=== PATIENT | female | born 1955 | race Caucasian/White ===

== ENCOUNTER 2017-01-31 07:34 | Observation (INO) | payer OTHER ==
[2017-01-31] MEDS ORDERED: ASPIRIN 81 MG CHEWABLE TAB PO ONE (07:35)
[2017-01-31] MEDS ORDERED: NS 500 ML IV ONE (07:35)
[2017-01-31] MEDS ORDERED: NITROGLYCERIN/DEXTROSE 250 ML IV ONE (07:35)
--- NOTE | 2017-01-31 07:42 | CPEKG ---
Heart Rate: 74 RR Interval: 811 P-R Interval: 160 QRSD Interval: 72 QT Interval: 364 QTC Interval: 404 P [place]: 20 QRS [place]: 67 T Wave [place]: 51 EKG Severity - NORMAL ECG - EKG Impression: SINUS RHYTHM Electronically Signed By: Misha Orr 01-Feb-2017 09:00:24
--- NOTE | 2017-01-31 07:45 | EDPHY ---
H & P Time Seen by Provider: 01/31/17 07:35 HPI/ROS: HPI Chest pain. 61-year-old female by private vehicle. She reports onset of substernal chest pain described as a squeezing aching sensation, mid sternum, 15-30 minutes prior to arrival to our emergency department on her way to work. She has a prior history of coronary artery disease. ROS: Constitutional: No fever, no chills. No weakness. Eyes: No discharge. No changes in vision. ENT: No sore throat. No nasal congestion or rhinorrhea. Respiratory: No cough. No shortness of breath. Cardiac: No chest pain, no palpitations. Gastrointestinal: No abdominal pain, no vomiting, no diarrhea. Genitourinary: No hematuria. No dysuria or increased frequency with urination. Musculoskeletal: No back pain. No neck pain. No myalgias or arthralgias. Skin: No rashes. Neurological: No headache. No focal weakness or altered sensation. Past medical history: Prior history of coronary artery disease. She has had stenting of her LAD in 2009 restenting in 2010. Swe[employer] Machine currently is Dr. Janice Samayoa. She has also been seen by Dr. Zack Manjarrez in the past. Per her records she had a coronary perfusion study in 2013 which showed patent stents. Her ejection fraction at that time was estimated to be 71%. Other past medical history includes hypertension, hyperlipidemia, right hip replacement, insomnia. Social history: Negative for tobacco. Here by herself. No alcohol. Physical Exam: General Appearance: Alert, mildly anxious. This patient is responding to questions appropriately and in full sentences. This patient appears well- hydrated and well-nourished. Eyes: Pupils equal and round no pallor or injection. No lid edema, erythema or injection. Respiratory: There are no retractions, lungs are clear to auscultation with good air movement bilaterally. No tachypnea. Cardiovascular: Regular rate and rhythm. No murmur. Gastrointestinal: Abdomen is soft and nontender, no masses, bowel sounds normal. No focal tenderness at McBurney's point. No Calzada sign. Neurological: Motor sensory function is grossly intact. Cranial nerves are normal. Gait is normal. Skin: Warm and dry, no rashes. Musculoskeletal: Neck is supple and nontender. Extremities are symmetrical. All joints range without pain or impingement. Psychiatric: No agitation. No depression. Database: EKG: EKG time is 7:41 a.m.; EKG shows a narrow complex normal sinus rhythm with a ventricular rate of 74. The VT, QRS, QT intervals are within normal limits. There are no ST-T wave changes indicative of ischemic or injury pattern. No evidence of right heart strain. Interpreted by me. Imaging: Chest x-ray AP portable; the cardiac mediastinal silhouette is unremarkable. No evidence of infiltrate or pneumothorax. No acute cardiopulmonary disease process noted. Interpreted by me. Procedures: Emergency department course: IV placed. She was placed on a equipment monitor phototypesetting. Vital signs reviewed. EKG and chest x-ray performed. She took 1 sublingual nitroglycerin without relief prior to arrival. She states that she often gets low blood pressure and lightheaded with nitroglycerin sublingual, more than 1 tablet. She will be started on a nitroglycerin drip at 40 micrograms/minutes initially. She was given a chewed aspirin. 7:45 a.m., patient re-evaluated. Rates her pain as a 4/10 currently. Vital signs remained stable. Nitroglycerin drip turned up to 60 micrograms/minute. 8:10 a.m., patient re-evaluated. Rates her pain as 1 to 2/10 currently. Nitroglycerin drip turned down to 40 micrograms/minute. Will be discontinued on transfer. 8:20 a.m., discussed case with on-call hospitalist. Patient accepted for admission to the hospitalist service by Dr. Booth. Patient transferred in stable condition. Patient to be admitted PCU observation on arrival to [facility]. Differential Diagnosis: The differential diagnosis on this patient includes but is not limited to acute coronary syndrome, myocardial infarction, myocarditis, pericarditis. Pulmonary embolism, aortic dissection unlikely. This represents a partial list of diagnoses considered. These considerations are based on history, physical exam , past history, reassessment and diagnostic testing. Smoking Status: Never smoked Constitutional: Initial Vital Signs Temperature (C) 36.4 C 01/31/17 07:34 Heart Rate 75 01/31/17 07:34 Respiratory Rate 24 H 01/31/17 07:34 Blood Pressure 104/67 01/31/17 07:34 O2 Sat (%) 93 01/31/17 07:34 O2 Delivery Mode Nasal Cannula O2 (L/minute) 2 Allergies/Adverse Reactions: hydromorphone [Hydromorphone] Allergy (Intermediate, Verified 01/31/17 07:38) Flushing hydromorphone HCl [From Dilaudid] Allergy (Intermediate, Verified 01/31/17 07:38 ) IV FLUSHING morphine Allergy (Intermediate, Verified 01/31/17 07:38) Itching Home Medications: Medication Instructions Recorded Aspirin EC [Aspirin EC 81 mg (*)] 81 mg PO DAILY 07/27/14 Beta-Carotene(A) W-C & E/Min 1 tab PO DAILY 07/27/14 [Ocuvite] Folic Acid [Folic Acid 1 MG (*)] 0.4 mg PO DAILY 07/27/14 Gabapentin [Neurontin] 600 mg PO HS 07/27/14 Herbals/Supplements -Info Only 1 ea PO DAILY 07/27/14 Nebivolol HCl [Bystolic] 2.5 mg PO DAILY 07/27/14 Rosuvastatin Calcium [Crestor] 10 mg PO HS 07/27/14 Vitamin B Complex [B Complex] 1 each PO DAILY 07/27/14 Amitriptyline HCl [Elavil] 25 mg PO HS 07/31/14 Acetaminophen [Tylenol 325mg (*)] 325 - 650 mg PO Q4 PRN #0 tab 08/07/14 Ferrous Sulfate [Slow Fe 140 MG 140 mg PO DAILY #30 tab.er 08/07/14 (*)] Clopidogrel Bisulfate [Plavix (*)] 75 mg PO HS 01/15/16 Pantoprazole Sodium [Protonix 40mg 40 mg PO DAILY 01/15/16 (*)] buPROPion XL [Wellbutrin 150mg XL] 150 mg PO DAILY 01/15/16 traZODone [traZODONE 50MG (*)] 50 mg PO HS PRN 01/15/16 Medical Decision Making - Diagnostics Imaging Results: Imaging Impressions Chest X-Ray 01/31/17 07:36 Impression: 1. No acute pulmonary disease. 2. Consider chest two views when the patient's medical condition permits. - Data Points Laboratory Results: Laboratory Results 01/31/17 07:49 01/31/17 07:49 01/31/17 01/31/17 01/31/17 07:49 07:49 07:49 WBC 5.78 10^3/uL 10^3/uL (3.80-9.50) RBC 4.19 10^6/uL 10^6/uL (4.18-5.33) Hgb 12.6 g/dL g/dL (12.6-16.3) Hct 38.0 % % (38.0-47.0) MCV 90.7 fL fL (81.5-99.8) MCH 30.1 pg pg (27.9-34.1) MCHC 33.2 g/dL g/dL (32.4-36.7) RDW 13.3 % % (11.5-15.2) Plt Count 217 10^3/uL 10^3/uL (150-400) MPV 9.0 fL fL (8.7-11.7) Neut % (Auto) 48.9 % % (39.3-74.2) Lymph % (Auto) 38.2 % % (15.0-45.0) Jerome % (Auto) 8.7 % % (4.5-13.0) Eos % (Auto) 3.1 % % (0.6-7.6) Baso % (Auto) 0.9 % % (0.3-1.7) Nucleat RBC Rel Count 0.0 % % (0.0-0.2) Absolute Neuts (auto) 2.83 10^3/uL 10^3/uL (1.70-6.50) Absolute Lymphs (auto) 2.21 10^3/uL 10^3/uL (1.00-3.00) Absolute Monos (auto) 0.50 10^3/uL 10^3/uL (0.30-0.80) Absolute Eos (auto) 0.18 10^3/uL 10^3/uL (0.03-0.40) Absolute Basos (auto) 0.05 10^3/uL 10^3/uL (0.02-0.10) Absolute Nucleated RBC 0.00 10^3/uL 10^3/uL (0-0.01) Immature Gran % 0.2 % % (0.0-1.1) Immature Gran # 0.01 10^3/uL 10^3/uL (0.00-0.10) PT 13.2 SEC SEC (12.0-15.0) INR 1.03 (0.83-1.16) APTT 29.8 SEC SEC (23.0-38.0) Sodium 140 mEq/L mEq/L (134-144) Potassium 3.9 mEq/L mEq/L (3.5-5.2) Chloride 104 mEq/L mEq/L (97-110) Carbon Dioxide 24 mEq/l mEq/l (22-31) Anion Gap 12 mEq/L mEq/L (8-16) BUN 19 mg/dL mg/dL (7-23) Creatinine 0.8 mg/dL mg/dL (0.6-1.0) Estimated GFR > 60 Glucose 94 mg/dL mg/dL (70-100) Calcium 8.9 mg/dL mg/dL (8.5-10.4) Creatine Kinase 67 IU/L IU/L (0-156) CK-MB (CK-2) Fraction 0.83 ng/mL ng/mL (0-4.55) Troponin I < 0.012 ng/mL ng/mL (0-0.034) Medications Given: Discontinued Medications Aspirin (Aspirin) 324 mg PO EDNOW ONE Stop: 01/31/17 07:36 Last Admin: 01/31/17 07:45 Dose: 324 mg Sodium Chloride (Ns) 500 mls @ 1,000 mls/hr IV ONCE ONE PRN Reason: Protocol Stop: 01/31/17 08:04 Last Admin: 01/31/17 07:45 Dose: 500 mls Nitroglycerin/Dextrose (Nitroglycerin 200 Mcg/Ml (Premix)) 250 mls @ 0 mls/hr IV CONT ONE; Titrate PRN Reason: Protocol Stop: 01/31/17 07:36 Last Admin: 01/31/17 07:50 Dose: 250 mls Departure - Departure Disposition: [facility] Inpatient Acute Clinical Impression: Chest pain, History of coronary artery disease
[2017-01-31 07:51] LABS: % IMMATURE GRANULYOCYTES 0.2 % (0.0-1.1); ABSOLUTE IMMATURE GRANULOCYTES 0.01 10^3/uL (0.00-0.10); ADD DIFF? NO; ADD MORPH? NO; ADD SCAN? NO; ATYPICAL LYMPHOCYTE FLAG 20 (0-99); FRAGMENT RBC FLAG 0 (0-99); HEMOGLOBIN 12.6 g/dL (12.6-16.3); LEFT SHIFT FLG 0 (0-99); LIPEMIA HEMOLYSIS FLAG 80 (0-99); MEAN CELL HEMOGLOBIN 30.1 pg (27.9-34.1); MEAN CELL HEMOGLOBIN CONCENTR. 33.2 g/dL (32.4-36.7); MEAN CELL VOLUME 90.7 fL (81.5-99.8); PLATELET CLUMPS FLAG 0 (0-99); PLATELET COUNT 217 10^3/uL (150-400); RED BLOOD CELL COUNT 4.19 10^6/uL (4.18-5.33); RED CELL DISTRIBUTION WIDTH 13.3 % (11.5-15.2)
[2017-01-31 08:07] LABS: ANION GAP 12 mEq/L (8-16); CALCIUM 8.9 mg/dL (8.5-10.4); CARBON DIOXIDE 24 mEq/l (22-31); CHLORIDE 104 mEq/L (97-110); CREATININE 0.8 mg/dL (0.6-1.0); GLOMERULAR FILTRATION RATE > 60; GLUCOSE 94 mg/dL (70-100); POTASSIUM 3.9 mEq/L (3.5-5.2); SODIUM 140 mEq/L (134-144)
[2017-01-31 08:08] LABS: INR 1.03 (0.83-1.16); PROTIME(PATIENT) 13.2 SEC (12.0-15.0)
[2017-01-31 08:09] LABS: APTT 29.8 SEC (23.0-38.0)
[2017-01-31 08:21] LABS: CREATINE KINASE-MB FRACTION 0.83 ng/mL (0-4.55); TROPONIN I < 0.012 ng/mL (0-0.034)
[2017-01-31] MEDS ORDERED: ACETAMINOPHEN 325 MG TAB PO PRN (11:12)
[2017-01-31] MEDS ORDERED: oxyCODONE IR 5 MG TAB PO PRN (11:12)
--- NOTE | 2017-01-31 11:51 | GCON ---
[f rep st] CONSULTATION CARDIOLOGY CONSULTATION. Primary degree clerk is Dr. Janice Samayoa. We were asked by Dr. Booth to evaluate the patient for her chest pain. HISTORY OF PRESENT ILLNESS: The patient is a 61-year-old female well known to our clinic with a his tory of coronary artery disease, Prinzmetal angina, hypertension, dyslipidemia, mild mitral regurgit ation, nocturnal hypoxia, and esophageal candidiasis. She reports that she has had bouts of Prinzme james angina diagnosed in approximately 2013. She had a chest pain admission approximately 1 year ago with a bandlike discomfort. Off and on over the past few days, she has had the short bouts of epis odes of chest pain. She did not need to take nitroglycerin for this. 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 She noted a left breast disco mfort that quickly radiated to her right breast. Discomfort was at approximately 5/10 and sharp in nature. She took 1 nitroglycerin without relief. Fifteen minutes later, her coworkers urged her to go to the emergency department for further evaluation. There, she was started on nitroglycerin dri p with improvement to her symptoms in approximately 30 minutes or so. She denies any associated elvia phoresis or dyspnea. She did note some nausea. Overall, she has been well recently. She did have a tympanic rupture and has been seeing ENT for th is. She has not had fever, chills, rhinorrhea, dyspnea, PND, orthopnea, diarrhea. She has been exe rcising with a goal of weight loss. She was biking over the weekend with no issues. PAST MEDICAL HISTORY: 1. Back pain with radiculopathy. 2. CAD with PCI to LAD in 2007, 2010. Her last cardiac catheterization was 08/31/2013 at which александр e she was found to have a widely patent stent in her proximal mid LAD with minimal in-stent restenos is. There was no other significant disease. She had normal LVEF. 3. DJD. 4. GERD. 5. Esophageal candidiasis. 6. Hyperlipidemia. 7. Hypertension. 8. Nocturnal hypoxia. 9. Prinzmetal angina. 10. Occasional PVCs. SOCIAL HISTORY: Patient has a significant other. She denies any tobacco abuse. She reports occasi onal alcohol intake. REVIEW OF SYSTEMS: Negative, except for what is dictated in HPI. Complete 10-point review of syste ms was obtained. ALLERGIES: Hydromorphone and morphine. HOME MEDICATIONS: Include: Amitriptyline, Bystolic, Crestor, gabapentin, Levsin, pantoprazole, Alban vix, tramadol, trazodone, triamcinolone, Wellbutrin, CoQ10, folic acid, aspirin. PHYSICAL EXAMINATION: VITAL SIGNS: BP of 117/69, heart rate 77, respirations 16, O2 saturation 95% on room air, temp of 98.2 degrees Fahrenheit. GENERAL: She is a very pleasant female in no appare nt distress. HEENT: Head is normocephalic, atraumatic. Eyes are SORAYA without scleral icterus. Tr achea is midline. Mucous membranes moist. HEART: Regular rate and rhythm. No rubs, gallops, or m urmurs. Carotids are without any bruit. LUNGS: Clear to auscultation. ABDOMEN: Soft, nontender with normoactive bowel sounds. SKIN: Warm and dry. PSYCHIATRIC: Normal mood and affect. LABORATORY DATA: CBC with WBC 5.78, hemoglobin 12.6, hematocrit 38, platelet count of 217. BMP wit h sodium 140, potassium 3.9, chloride 104, CO2 24, BUN 19, creatinine 0.8, glucose of 94. Troponin less than 0.012. Twelve-lead ECG personally interpreted, demonstrates normal sinus rhythm. [facility] no acute pulmonary disease. IMPRESSION AND PLAN: The patient is a 61-year-old female who presents with chest pain. 1. Chest pain. She has a normal EKG and 1st enzyme is negative. We reviewed option. Given her hi story of Prinzmetal angina, this may be a recurrent episode. We will plan to risk stratify with a 2 nd set of cardiac enzymes. We could consider trying a different calcium channel mesfin such as the addition of diltiazem. Apparently, she did not tolerate Norvasc in the past. She could then proce ed to an outpatient stress test and see Dr. Samayoa in followup. However, if her cardiac enzymes becom e positive or she has worsening pain, we would want to proceed to that testing here, prior to discha rge, or even further aggressive testing. 2. Dyslipidemia. LDL was last checked last month and was 76. She may continue her Crestor therapy . 3. Hypertension. Blood pressure appears adequately controlled at this point. /[id number]/MODL
--- NOTE | 2017-01-31 12:06 | GHP ---
[f rep st] HISTORY AND PHYSICAL DATE OF ADMISSION: 01/31/2017 CHIEF COMPLAINT: Chest pain. HISTORY OF PRESENT ILLNESS: This is a 61-year-old female with a history of coronary artery disease, presents with chest pain described as a sharp left-sided pain, occurred while she was doing her [employer] job, not exertional. She took a nitro, which did not relieve the pain. She went into the ED, w as placed on a nitro drip, and eventually the pain went away. She has had 2 stents to her LAD, the last was in 2010. This pain was similar to when she had her previous stents. She had last stress t est in December of 2015, which was negative for ischemia or infarct. At that point, she was diagnosed wi th Prinzmetal angina. When I am seeing her, pain is completely resolved. She has had no change in her functional status recently. No shortness of breath. No lower extremity edema. PAST MEDICAL HISTORY: 1. Coronary artery disease, as above. 2. Hypertension. 3. Hyperlipidemia. 4. Spinal fusion. 5. Two hip replacements. 6. Chronic constipation. MEDICATIONS: Please see medication reconciliation. ALLERGIES: Dilaudid and morphine. FAMILY HISTORY: Both parents had coronary artery disease. SOCIAL HISTORY: She occasionally drinks alcohol. She works as a MA here. She does not smoke. REVIEW OF SYSTEMS: 10-point review of systems is conducted, and is negative except per HPI. PHYSICAL EXAM: VITAL SIGNS: Blood pressure 117/69, heart rate 77, respiration rate 16, saturating 95% on room air, temperature 36.8. GENERAL: The patient is a pleasant lady, who appears comfortabl e, in no acute distress. HEENT: Normocephalic, atraumatic. CARDIOVASCULAR: A regular rate and rh ythm. There are no murmurs, rubs, or gallops. No elevated JVD. No lower extremity edema. PULMONA RY: Lungs clear to auscultation bilaterally, with no bibasilar rales. ABDOMEN: Soft, nontender, n ondistended. SKIN: No rash. : No Willard. NEUROLOGIC: Alert and oriented x3. She is moving al l extremities. PSYCHIATRIC: Normal mood and affect. LABS: CBC is normal. INR is normal. Basic metabolic panel is normal. Troponin is negative. DATA: 1. I discussed with Isabel Mark. Monitor her on telemetry. 2. I personally viewed and interpreted her chest x-ray. This shows nothing acute. Heart size is n ormal. 3. I personally viewed and interpreted her EKG. This shows normal sinus rhythm. There are no acut e ischemic changes. 4. I reviewed her old chart, as summarized in the HPI. IMPRESSION AND PLAN: A 61-year-old female with chest pain. 1. Chest pain: Suspect this is Prinzmetal's, like her previous admission. I doubt that this is ac bg coronary syndrome. Doubt pulmonary embolus or aortic pathology, given her normal vitals. I agr ee we will get another troponin at 6 hours after pain started. If this is negative, will discharge her. She is on appropriate cardiovascular medications, will continue these. We will consider Imdur per Cardiology, though this the first time in a year she has had this pain. 2. Hypertension: Home medications. /[id number]/MODL
[2017-01-31 14:08] VITALS: BP 133/80; PULSE 69; RESP 13; TEMP 97.9; O2SAT 94
[2017-01-31] MEDS ORDERED: traZODone 50 MG TAB PO PRN (14:08)
--- NOTE | 2017-01-31 15:47 | GDS ---
[f rep st] DISCHARGE SUMMARY DIAGNOSES: 1. Chest pain, likely Prinzmetal angina. 2. History of coronary artery disease, status post LAD stent. 3. Hypertension. 4. Hyperlipidemia. HOSPITAL COURSE: A 61-year-old female presented with atypical chest pain. She does have a history of coronary artery disease with 2 stents to her LAD; the last one was in 2010. Had a nuclear stress test about a year ago which was normal. She has also had a cath in 2013. At that time, she was fe lt to have Prinzmetal angina. She was seen by Cardiology, who agrees with the plan. She had a norm al EKG and 2 negative troponins, one 6 hours post her chest pain episode, which is completely resolv ed. Plan will be to discharge her in stable condition. We discussed adding other antianginals, though h er last episode of this was 1 year ago. We will defer to her outpatient drug enforcement administration agent, Dr. Samayoa. e will be sent a note and consider outpatient stress test. I have discussed this with the patient. She is discharged in stable condition without any medication changes. /[id number]/MODL
[2017-01-31] MEDS ORDERED: GABAPENTIN 300 MG CAP PO SCH (21:00)
[2017-01-31] MEDS ORDERED: CLOPIDOGREL BISULFATE 75 MG TAB PO SCH (21:00)
[2017-01-31] MEDS ORDERED: AMITRIPTYLINE HCL 25 MG TAB PO SCH (21:00)
[2017-01-31] MEDS ORDERED: ROSUVASTATIN CALCIUM 10 MG TAB PO SCH (21:00)
[2017-01-31] MEDS ORDERED: NON-FORMULARY NEW DRUG (Gabapentin [Neurontin] 600 MG) PO SCH (21:00)
[2017-02-01] MEDS ORDERED: NEBIVOLOL HCL 5 MG TAB PO SCH (09:00)
[2017-02-01] MEDS ORDERED: FERROUS SULFATE 140 MG TAB.ER PO SCH (09:00)
[2017-02-01] MEDS ORDERED: PRESERVISION AREDS2 FORMULA EYE VIT 1 EACH PO SCH (09:00)
[2017-02-01] MEDS ORDERED: NON-FORMULARY NEW DRUG (Beta-Carotene(A) W-C & E/Min [Ocuvite] 1 TAB) PO SCH (09:00)
[2017-02-01] MEDS ORDERED: buPROPion XL 150 MG TAB PO SCH (09:00)
[2017-02-01] MEDS ORDERED: ASPIRIN EC 81 MG TAB PO SCH (09:00)
[2017-02-01] MEDS ORDERED: PANTOPRAZOLE SODIUM 40 MG TAB PO SCH (09:00)
[2017-02-01] MEDS ORDERED: NON-FORMULARY NEW DRUG (Nebivolol Hcl [Bystolic] 2.5 MG) PO SCH (09:00)
== END 2017-01-31 16:14 | disposition home or self-care (01) ==
LOC: CED 07:34 → F2W 09:54
PROVIDERS: ADMIT Student in an Organized Health Care Education/Training Program; ATTEND Student in an Organized Health Care Education/Training Program
DX: R07.9 Chest pain, unspecified (principal); I25.10 Atherosclerotic heart disease of native coronary artery without angina pectoris; I10 Essential (primary) hypertension; E78.5 Hyperlipidemia, unspecified; I34.0 Nonrheumatic mitral (valve) insufficiency; K21.9 Gastro-esophageal reflux disease without esophagitis; K59.00 Constipation, unspecified; Z95.5 Presence of coronary angioplasty implant and graft; Z96.643 Presence of artificial hip joint, bilateral; Z98.1 Arthrodesis status
CPT/HCPCS: 71010; 93005; 96374; 99285; G0378; 80048-PO; 82550-PO; 82553-PO; 84484-PO; 85025-PO; 85610-PO; 85730-PO

== ENCOUNTER → 2017-03-26 | Outpatient (CLI) | payer OTHER | LOC: FIMAGING 08:34 | PROVIDERS: ATTEND Nurse Practitioner | DX: Z12.31 Encounter for screening mammogram for malignant neoplasm of breast (principal); Z80.3 Family history of malignant neoplasm of breast | CPT/HCPCS: G0202 ==

== ENCOUNTER → 2017-04-25 | Outpatient (CLI) | payer OTHER | LOC: FIMAGING 18:35 | PROVIDERS: ATTEND Physician Assistant | DX: M48.06 Spinal stenosis, lumbar region (principal); Z98.1 Arthrodesis status ==

== ENCOUNTER → 2017-06-28 | Outpatient (CLI) | payer OTHER | LOC: BRMIMAGING 14:52 | PROVIDERS: ATTEND Nurse Practitioner | DX: Z13.820 Encounter for screening for osteoporosis (principal); M85.80 Other specified disorders of bone density and structure, unspecified site; Z78.0 Asymptomatic menopausal state; Z82.62 Family history of osteoporosis ==

== ENCOUNTER → 2018-05-15 | Outpatient (CLI) | payer OTHER | LOC: FIMAGING 14:26 | PROVIDERS: ATTEND Nurse Practitioner | DX: Z12.31 Encounter for screening mammogram for malignant neoplasm of breast (principal); Z80.3 Family history of malignant neoplasm of breast ==